=== PATIENT | male | born 1965 | race Two or more races ===

== ENCOUNTER 2020-08-05 08:28 | Inpatient (IN) | payer OTHER, MEDICAID ==
[~2020-08-05] VITALS: Ht 170.2 cm; Wt 103.0 kg
[2020-08-05 10:26] LABS: Basophils # (auto) 0.1 10 ^3/uL (0-0.2); Basophils % (auto) 0.8 % (0.0-2.0); Eosinophils # (auto) 0.3 10 ^3/uL (0-0.8); Eosinophils % (auto) 3.9 % (0.0-7.0); Hematocrit 45.3 % (41.0-53.0); Hemoglobin 15.6 g/dL (13.5-17.5); Lymphocytes # (auto) 2.3 10 ^3/uL (0.4-5.4); Lymphocytes % (auto) 27.3 % (10.0-50.0); Mean Corpuscular Hgb Conc. 34.5 g/dL (32.0-36.0); Mean Corpuscular Volume 86.8 fL (80.0-100.0); Monocytes # (auto) 0.9 10 ^3/uL (0-1.3); Monocytes % (auto) 11.1 % (0.0-12.0); Neutrophils # (auto) 4.8 10 ^3/uL (1.6-8.6); Neutrophils % (auto) 56.9 % (37.0-80.0); Nucleated Red Blood Cells % 0.2 %; Platelet Count (auto) 277 10^3/uL (140-450); Red Blood Cells 5.22 10^6/uL (4.5-5.90); Red Cell Distribution Width 12.5 % (11.8-14.3); White Blood Cell 8.4 10^3/uL (4.4-10.8)
[2020-08-05] MEDS ORDERED: SODIUM CHLORIDE 0.9% 1,000 ML IV ONE ×2 (10:30)
[2020-08-05 10:52] LABS: Urine Bacteria NONE SEEN /hpf (None Seen); Urine Blood Negative /uL (Negative); Urine Specific Gravity 1.049 (1.001-1.035); Urine WBC <1 /hpf (0 - 3)
[2020-08-05 11:59] LABS: Bilirubin, Total 1.5 mg/dL (0.2-1.0); Potassium 3.7 mmol/L (3.5-5.1)
[2020-08-05] MEDS ORDERED: PIPERACILLIN-TAZOB 3.375GM 100 ML IV ONE (12:00)
[2020-08-05 12:13] LABS: Albumin 3.9 g/dL (3.4-5.0); Calcium 9.4 mg/dL (8.5-10.1)
[2020-08-05 12:20] LABS: Total Protein 7.7 g/dL (6.4-8.2)
[2020-08-05] MEDS ORDERED: MORPHINE SULF INJ 2 MG/ML SYRINGE 1ML IV PRN (12:30)
[2020-08-05] MEDS ORDERED: ACETAMINOPHEN 500 MG TAB PO PRN (12:30)
[2020-08-05] MEDS ORDERED: ONDANSETRON HCL 4 MG/2 ML VIAL IV PRN (12:30)
[2020-08-05] MEDS ORDERED: NITROGLYCERIN 0.4 MG SL TAB SL PRN (12:30)
[2020-08-05] MEDS ORDERED: LABETALOL HCL 5 MG/ML 4ML SYRINGE IV PRN (12:30)
[2020-08-05] MEDS ORDERED: DEXTROSE (50%) 50ML SYRG IV PRN (12:30)
[2020-08-05] MEDS: MORPHINE SULF INJ 2 MG/ML SYRINGE 1ML IV PRN ×3 (13:21→22:53)
[2020-08-05 13:34] LABS: INR 1.02 (0.9-1.15)
--- NOTE | 2020-08-05 14:15 | NUR ---
Telemetry admit from JU BLANCHARD admitted to Telemetry unit after SBAR received. Patient oriented to MOLLY STARK RN primary RN,[facility] unit, 221 room,b bed, and unit policies regarding patient care and visiting hours. Patient now on continuous telemetry monitoring, tele box #41 and telemetry reading on arrival to unit is sr 90'S. Patient weighed by bedscale and encouraged to call if they need something. All questions and concerns addressed, patient verbalized understanding. Note:
[2020-08-05 14:28] LABS: Bilirubin, Total 1.4 mg/dL (0.2-1.0)
[2020-08-05 14:32] LABS: Cholesterol 132 mg/dL (< 200); Triglycerides 243 mg/dL (< 150)
[2020-08-05 14:34] LABS: HDL Cholesterol 33 mg/dL (40-59); LDL Cholesterol 78 mg/dL (< 100)
[2020-08-05] MEDS: metroNIDAZOLE 500MG/100ML 100 ML IV SCH ×2 (15:11→23:10)
[2020-08-05 16:36] VITALS: BP 133/86
[2020-08-05 16:46] VITALS: BP 133/86
[2020-08-05] MEDS ORDERED: INFLUENZA QUAD 2020-2021 0.5 ML SYRG IM ONE (17:15)
[2020-08-05] MEDS: ACCU-CHEK COMFORT CURVE STRIP VI SCH ×2 (17:16→22:00)
[2020-08-05] MEDS: InsuLIN REG 1unit/0.01ml Soln (100units/ml) SC SCH ×2 (17:57→21:37)
--- NOTE | 2020-08-05 19:00 | NUR ---
Opening Shift Note Assumed care of patient, awake and alert. No S/S of distress/SOB or pain. Insructed on POC and to callfor assist PRN, will continue to monitor for changes Q1hr and PRN.
[2020-08-05] MEDS ORDERED: METF-370 PO (19:10)
[2020-08-05] MEDS ORDERED: DOXE10CA PO (19:12)
[2020-08-05] MEDS ORDERED: ATOR10TA PO (19:12)
[2020-08-05] MEDS ORDERED: SITA50TA PO (19:13)
[2020-08-05] MEDS: ATORVASTATIN 20 MG TAB PO SCH (21:39)
[2020-08-05 22:00] VITALS: BP 134/91
--- NOTE | 2020-08-06 05:30 | NUR ---
Pt Self Report Patient reported BM at 0530. Pt verbalized " I think I may have passed something, my pain level decreased from a 7 to a 4. I felt instant relief". Per pt, bm was brown, non-formed, no blood, small ball shaped pieces.
[2020-08-06 05:50] VITALS: BP 123/72
[2020-08-06] MEDS ORDERED: INFLUENZA QUAD 2020-2021 0.5 ML SYRG IM ONE (05:51)
[2020-08-06] MEDS: metroNIDAZOLE 500MG/100ML 100 ML IV SCH ×3 (06:03→23:00)
[2020-08-06] MEDS: ACCU-CHEK COMFORT CURVE STRIP VI SCH ×4 (06:16→21:44)
[2020-08-06] MEDS: InsuLIN REG 1unit/0.01ml Soln (100units/ml) SC SCH ×4 (06:16→21:33)
[2020-08-06 06:42] LABS: Basophils # (auto) 0.1 10 ^3/uL (0-0.2); Basophils % (auto) 0.7 % (0.0-2.0); Eosinophils # (auto) 0.3 10 ^3/uL (0-0.8); Eosinophils % (auto) 3.6 % (0.0-7.0); Hematocrit 40.2 % (41.0-53.0); Lymphocytes # (auto) 1.3 10 ^3/uL (0.4-5.4); Lymphocytes % (auto) 18.9 % (10.0-50.0); Mean Corpuscular Hemoglobin 30.2 pg (28.0-32.0); Mean Corpuscular Hgb Conc. 34.8 g/dL (32.0-36.0); Mean Corpuscular Volume 86.8 fL (80.0-100.0); Monocytes # (auto) 0.7 10 ^3/uL (0-1.3); Monocytes % (auto) 9.6 % (0.0-12.0); Neutrophils # (auto) 4.8 10 ^3/uL (1.6-8.6); Neutrophils % (auto) 67.2 % (37.0-80.0); Platelet Count (auto) 244 10^3/uL (140-450); Red Blood Cells 4.63 10^6/uL (4.5-5.90); Red Cell Distribution Width 12.5 % (11.8-14.3); White Blood Cell 7.1 10^3/uL (4.4-10.8)
[2020-08-06 06:56] LABS: Potassium 3.7 mmol/L (3.5-5.1)
[2020-08-06 06:58] LABS: Albumin 3.2 g/dL (3.4-5.0); BUN/Creatinine Ratio 12.5; Calcium 8.4 mg/dL (8.5-10.1)
[2020-08-06 07:01] LABS: Bilirubin, Total 1.5 mg/dL (0.2-1.0); Total Protein 6.6 g/dL (6.4-8.2)
--- NOTE | 2020-08-06 07:12 | NUR ---
Opening Shift Note Assumed care of patient, awake and alert. No S/S of distress/SOB or pain. Insructed on POC and to callfor assist PRN. Call light in reach, will continue to monitor for changes Q1hr and PRN.
[2020-08-06] MEDS: PANTOPRAZOLE 40 MG/10 ML VIAL INJ IV SCH (08:52)
[2020-08-06] MEDS: cefTRIAXone 1GM/50ML D5W 50 ML IV SCH (08:52)
[2020-08-06 09:00] VITALS: BP 124/78
[2020-08-06 13:00] VITALS: BP 136/77
[2020-08-06 17:00] VITALS: BP 138/83
[2020-08-06] MEDS: ATORVASTATIN 20 MG TAB PO SCH (21:35)
[2020-08-06 22:00] VITALS: BP 124/73
[2020-08-07 05:00] VITALS: BP_SYST 118; BP_SYST 135; BP_DIAS 69; BP_DIAS 91
[2020-08-07] MEDS: metroNIDAZOLE 500MG/100ML 100 ML IV SCH ×3 (06:13→23:15)
[2020-08-07] MEDS: InsuLIN REG 1unit/0.01ml Soln (100units/ml) SC SCH ×4 (06:14→22:14)
[2020-08-07] MEDS: ACCU-CHEK COMFORT CURVE STRIP VI SCH ×4 (06:15→22:05)
--- NOTE | 2020-08-07 08:43 | NUR ---
ALLY TRINIDAD AT BEDSIDE DISCUSSING POC WITH PATIENT.
[2020-08-07 09:00] VITALS: BP 122/70
[2020-08-07] MEDS: PANTOPRAZOLE 40 MG/10 ML VIAL INJ IV SCH (09:18)
[2020-08-07] MEDS: cefTRIAXone 1GM/50ML D5W 50 ML IV SCH (09:18)
--- NOTE | 2020-08-07 10:35 | NUR ---
CROW CUEVAS WALKED DOWN TO LAB.
--- NOTE | 2020-08-07 11:45 | NUR ---
Nutrition Assessment Note please see attached link for complete assessment Est energy needs ABW 85 [id number] kcal (20-23 kcal/kg ABW), Est protein needs: 85-93 g (1.0-1.1g/kg ABW) Will reassess prn. Addendum: 08/07/20 at [address] Amended: Links added.
--- NOTE | 2020-08-07 12:50 | NUR ---
Patient taken down to OR, No S/S of distress noted
[2020-08-07 13:00] VITALS: BP 129/83
[2020-08-07] MEDS ORDERED: MIDAZOLAM HCL 1MG/1ML-2 ML VIAL ONE (13:13)
[2020-08-07] MEDS ORDERED: MEPERIDINE HCL (25 MG/ML) 1ML VIAL ONE (13:13)
[2020-08-07] MEDS ORDERED: fentaNYL CITRATE 100 MCG/2 ML VL ONE (13:13)
[2020-08-07] MEDS ORDERED: PROPOFOL 10 MG/ML 20 ML IV ONE ×2 (13:14→13:49)
[2020-08-07] MEDS ORDERED: SODIUM CHLORIDE LOCK 10 ML ONE (13:14)
[2020-08-07] MEDS ORDERED: ONDANSETRON HCL 4 MG/2 ML VIAL ONE (13:14)
[2020-08-07] MEDS ORDERED: ROCURONIUM 10MG/ML 10ML VIAL IV ONE (13:14)
[2020-08-07] MEDS ORDERED: MORPHINE SULFATE 4 MG/ML SYR/VIAL IV PRN (13:45)
[2020-08-07] MEDS ORDERED: ACCU-CHEK COMFORT CURVE STRIP VI ONE (13:45)
[2020-08-07] MEDS ORDERED: HYDROmorphone HCL 2 MG/ML VL IV PRN (13:45)
[2020-08-07] MEDS ORDERED: NEOSTIGMINE 1 MG/ML INJ (10mg/10ML VIAL) ONE (13:50)
[2020-08-07] MEDS ORDERED: GLYCOPYRROLATE 0.2 MG/ML 1ML VIAL ONE (13:50)
[2020-08-07] MEDS ORDERED: DOXAPRAM HCL 20 MG/ML 20ML VIAL INJ IV ONE (14:04)
[2020-08-07] MEDS ORDERED: POVIDONE IODINE 10 % TOPICAL OINT 30GM TOP ONE (14:40)
--- NOTE | 2020-08-07 16:00 | NUR ---
PATIENT BACK FROM OR AWAKE AND ALERT , RESPIRATIONS ARE EVEN AND UNLABORED, V/S WNL. NO S/S OF DISTRESS NOTED. 97.8 TEMP 61 HR, 16 RR 96% 136/86 B/P
[2020-08-07 17:00] VITALS: BP 136/86
[2020-08-07] MEDS: MORPHINE SULF INJ 2 MG/ML SYRINGE 1ML IV PRN ×2 (17:38→22:59)
--- NOTE | 2020-08-07 19:00 | NUR ---
JEREMY DRAINAGE JEERMY DRAINAGE OF 30ML BRIGHT RED DRAINAGE
--- NOTE | 2020-08-07 19:30 | NUR ---
Opening Shift Note Assumed care of patient, awake and alert. No S/S of distress/SOB or pain. Instructed on POC and to call for assist PRN, will continue to monitor for changes Q1hr and PRN. Bed is in the lowest position and locked. Call light within reach.
[2020-08-07 20:00] VITALS: BP 136/80
[2020-08-07 22:00] VITALS: BP 136/80
[2020-08-07] MEDS: ATORVASTATIN 20 MG TAB PO SCH (22:06)
[2020-08-08 05:30] VITALS: BP 138/84
[2020-08-08] MEDS: metroNIDAZOLE 500MG/100ML 100 ML IV SCH ×2 (06:49→15:00)
[2020-08-08] MEDS: InsuLIN REG 1unit/0.01ml Soln (100units/ml) SC SCH ×4 (06:50→22:13)
[2020-08-08] MEDS: ACCU-CHEK COMFORT CURVE STRIP VI SCH ×4 (06:51→22:00)
--- NOTE | 2020-08-08 07:20 | NUR ---
JEREMY DRAINAGE 90 ML OF BRIGHT RED DRAINAGE
[2020-08-08] MEDS: PANTOPRAZOLE 40 MG/10 ML VIAL INJ IV SCH (08:53)
[2020-08-08] MEDS: cefTRIAXone 1GM/50ML D5W 50 ML IV SCH (08:53)
[2020-08-08 09:00] VITALS: BP 130/75
[2020-08-08 11:07] LABS: Basophils # (auto) 0.1 10 ^3/uL (0-0.2); Basophils % (auto) 0.7 % (0.0-2.0); Eosinophils # (auto) 0.2 10 ^3/uL (0-0.8); Eosinophils % (auto) 1.5 % (0.0-7.0); Hematocrit 42.8 % (41.0-53.0); Hemoglobin 14.6 g/dL (13.5-17.5); Lymphocytes # (auto) 1.2 10 ^3/uL (0.4-5.4); Mean Corpuscular Hemoglobin 29.9 pg (28.0-32.0); Mean Corpuscular Hgb Conc. 34.1 g/dL (32.0-36.0); Mean Corpuscular Volume 87.6 fL (80.0-100.0); Monocytes # (auto) 1.2 10 ^3/uL (0-1.3); Monocytes % (auto) 10.5 % (0.0-12.0); Neutrophils # (auto) 8.7 10 ^3/uL (1.6-8.6); Neutrophils % (auto) 76.3 % (37.0-80.0); Nucleated Red Blood Cells % 0.1 %; Platelet Count (auto) 267 10^3/uL (140-450); Red Blood Cells 4.89 10^6/uL (4.5-5.90); Red Cell Distribution Width 12.5 % (11.8-14.3); White Blood Cell 11.4 10^3/uL (4.4-10.8)
[2020-08-08 11:19] LABS: Albumin 3.3 g/dL (3.4-5.0); Calcium 8.8 mg/dL (8.5-10.1); Potassium 4.1 mmol/L (3.5-5.1)
[2020-08-08 11:24] LABS: BUN/Creatinine Ratio 11.1; Bilirubin, Total 1.9 mg/dL (0.2-1.0); Total Protein 6.6 g/dL (6.4-8.2)
[2020-08-08 13:00] VITALS: BP 138/82
--- NOTE | 2020-08-08 14:00 | NUR ---
PATIENT STATED HE HAD LARGE FORMED BM AND IS PASSING GAS.
[2020-08-08] MEDS: HYDROcodone-ACET 5/325MG TAB PO PRN (16:39)
[2020-08-08 17:06] VITALS: BP 138/74
--- NOTE | 2020-08-08 17:47 | NUR ---
JEREMY DRAINAGE PATIENT JEREMY OUTPUT 35ML OF BRIGHT RED DRAINAGE.
--- NOTE | 2020-08-08 19:10 | NUR ---
Opening Shift Note Assumed care of patient, awake and alert. No S/S of distress/SOB or pain. Instructed on POC and to call for assist PRN, will continue to monitor for changes Q1hr and PRN. Bed locked and in lowest position with call light within reach.
[2020-08-08 20:00] VITALS: BP 136/76
[2020-08-08] MEDS: ATORVASTATIN 20 MG TAB PO SCH (22:00)
[2020-08-08] MEDS: metroNIDAZOLE 500 MG TAB PO SCH (22:00)
[2020-08-09] MEDS: metroNIDAZOLE 500 MG TAB PO SCH ×3 (05:46→22:24)
[2020-08-09] MEDS: ACCU-CHEK COMFORT CURVE STRIP VI SCH ×4 (06:37→22:24)
[2020-08-09] MEDS: InsuLIN REG 1unit/0.01ml Soln (100units/ml) SC SCH ×4 (06:45→22:28)
--- NOTE | 2020-08-09 06:49 | NUR ---
JEREMY drainage 50 mL out of bright red blood
[2020-08-09 08:30] VITALS: BP 123/76
[2020-08-09 09:00] VITALS: BP 123/76
[2020-08-09] MEDS: PANTOPRAZOLE 40 MG TAB PO SCH (09:07)
[2020-08-09] MEDS: cefTRIAXone 1GM/50ML D5W 50 ML IV SCH (09:08)
--- NOTE | 2020-08-09 09:08 | NUR ---
Scheduled po and IV abx given per order. Patient requested medication for 6/10 abdominal pain. Will medicate. Patient stable at this time.
[2020-08-09] MEDS: HYDROcodone-ACET 5/325MG TAB PO PRN ×3 (09:19→23:24)
--- NOTE | 2020-08-09 09:20 | NUR ---
Patient medicated for 6/10 abdominal pain. Patient stable at this time.
--- NOTE | 2020-08-09 09:35 | NUR ---
Patient ambulated to bathroom and back to bed. Patient stable.
--- NOTE | 2020-08-09 10:15 | NUR ---
Patient states pain is subsiding; 2/10. Patient stable.
--- NOTE | 2020-08-09 11:05 | NUR ---
Patient ambulating in hallway with no distress noted.
--- NOTE | 2020-08-09 11:55 | NUR ---
Assessment The patient is a 55-year-old male, who is alert and oriented. Patient cognitive abilities are intact. Patient states that he can do all ADLs and ambulate independently prior to admission to [facility]. Patient is receiving social security as income. Patient states that he lives with his (Harsh [phone]). Patient will return home post discharge and his will provide transportation post discharge. Patient stated that his and children are his support system. Patient stated that he is receptive on receiving Advance Directive forms to read over with his Discharge planning: will provide Advance Directive for patient to fill out. Patient post discharge needs are yet to be determine at this moment. Addendum: 08/09/20 at 1155 by AVTAR MEDINA Amended: Links added.
--- NOTE | 2020-08-09 12:23 | NUR ---
Checked blood sugar: 225 mg/dl - will cover per sliding scale. Patient stable. Addendum: 08/09/20 at 1233 by ZARA PIERRE RN RN Covered per sliding scale.
[2020-08-09 12:30] VITALS: BP 137/87
--- NOTE | 2020-08-09 14:01 | NUR ---
Nutrition Followup Notes Pt wt is 104.2 kg Pt was awake when rounded this morning. Pt is with a clear liquid diet, appetite is good aeb ave 88% PO intake over 2 meals per RN doc. Pt is also prescribed metronidazole, gave pt food/drug information. Dietary education for pt medical condition was given at bedside, with supportive dietary information included in pt D/C file. Pt reported feeling better s/p surgery. Est energy needs ABW 85 [id number] kcal (20-23 kcal/kg ABW), Est protein needs: 85-93 g (1.0-1.1g/kg ABW) Will reassess prn. LABS: GI: BS: PES: 1) Altered nutrition related lab values r/t current chronic medical condition aeb elev A1C hyperglycemia, mild hypoalb 2) Decrease dnutrient needs r/t adiposity aeb pt`s high BMI of 35.9 kgm2 Comments Will continue to monitor PO status, skin status, pertinent labs and weight trends. Will f/u in 2-3 days 1) advance diet as medically feaisble 2) refer to CDE on DC 3) continue current plan f care
--- NOTE | 2020-08-09 14:27 | NUR ---
Scheduled po abx given per order. Patient resting comfortably in bed with no complaint of pain at this time. Patient stable.
[2020-08-09 16:40] VITALS: BP 126/84
--- NOTE | 2020-08-09 16:52 | NUR ---
Checked blood sugar: 299 mg/dl - will cover per sliding scale. Patient sitting on side of bed; stable.
--- NOTE | 2020-08-09 17:20 | NUR ---
Patient covered per sliding scale and medicated for 6/10 abdominal pain. Patient sitting on side of bed in stable condition.
--- NOTE | 2020-08-09 18:20 | NUR ---
Patient eating dinner. No complaint of pain or discomfort at this time. Patient stable throughout shift.
--- NOTE | 2020-08-09 19:40 | NUR ---
Opening Shift Note Assumed care of patient, awake and alert. A&Ox4. Patient sitting up in bed. No S/S of distress/SOB or pain. Patient's JEREMY drain is draining, some discharge to the dressing noted. Placed abdominal pad to site. Abdominal binder in place. Safety measures maintained by keeping the bed locked in lowest position, 2 side rails up, personal items and call light within reach. Instructed on POC and to call for assist PRN, will continue to monitor for changes Q1hr and PRN.
[2020-08-09] MEDS: ATORVASTATIN 20 MG TAB PO SCH (22:24)
[2020-08-09 23:25] VITALS: BP 134/75
--- NOTE | 2020-08-09 23:25 | NUR ---
JEREMY drainage of 15mL out from JEREMY drain. Drainage is bright red. Patient also demonstrated how to empty out the drainage from the drain. Patient tolerated well.
[2020-08-10 05:00] VITALS: BP 137/80
[2020-08-10] MEDS: metroNIDAZOLE 500 MG TAB PO SCH ×2 (06:35→14:01)
[2020-08-10] MEDS: InsuLIN REG 1unit/0.01ml Soln (100units/ml) SC SCH ×3 (06:35→17:57)
[2020-08-10] MEDS: ACCU-CHEK COMFORT CURVE STRIP VI SCH ×3 (06:35→17:49)
--- NOTE | 2020-08-10 06:52 | NUR ---
JEREMY drainage of 10mL out from JEREMY drain. Drainage is bright red. Patient demonstrated emptying out the JEREMY drain himself. Patient tolerated well.
--- NOTE | 2020-08-10 07:15 | NUR ---
Patient resting comfortably in bed with no complaint of pain at this time. Patient stable.
[2020-08-10 08:30] VITALS: BP 140/86
[2020-08-10 09:00] VITALS: BP 140/86
[2020-08-10] MEDS: PANTOPRAZOLE 40 MG TAB PO SCH (09:10)
[2020-08-10] MEDS: cefTRIAXone 1GM/50ML D5W 50 ML IV SCH (09:10)
--- NOTE | 2020-08-10 09:10 | NUR ---
Scheduled po medication and IV abx per order. Patient resting comfortably in bed with no distress noted. Patient stable at this time. Addendum: 08/10/20 at 0912 by ZARA PIERRE RN RN Requested med for 01/06 abdominal pain. Will medicate.
[2020-08-10] MEDS: HYDROcodone-ACET 5/325MG TAB PO PRN (09:19)
--- NOTE | 2020-08-10 09:20 | NUR ---
Patient medicated for 4/10 abdominal pain. Patient stable.
--- NOTE | 2020-08-10 11:44 | NUR ---
Checked blood sugar: 393 mg/dl - will cover per sliding scale. Patient stable at this time. Addendum: 08/10/20 at 1150 by ZARA PIERRE RN RN Covered per sliding scale.
[2020-08-10] MEDS ORDERED: AMOX500T86 PO (12:46)
[2020-08-10 13:00] VITALS: BP 142/71
--- NOTE | 2020-08-10 13:18 | NUR ---
Patient resting comfortably in bed with no complaint of pain at this time. Patient stable.
--- NOTE | 2020-08-10 14:00 | NUR ---
Scheduled po abx given per order. Patient resting comfortably in bed with no distress noted at this time. Patient stable. Addendum: 08/10/20 at 1408 by ZARA PIERRE RN RN 20mls of reddish drainage emptied from JEREMY drain.
--- NOTE | 2020-08-10 17:00 | NUR ---
Discharge instructions Both written and verbal discharge instructions given to patient as ordered. Encourage to follow up with PMD as instructed and also follow up with Dr. Coronel on 08-22-20. All questions and concerns addressed. Patient verbalized understanding. Medication reconciliation form completed and copy given to patient. Peripheral IV removed intact with no active bleeding; pressure dressing applied to site. Telemetry unit returned to ICU. Dressing changed on abdominal, surgical sites and JEREMY drain site. Emptied 20mls from JEREMY drain. Reiterated how to drain and measure output from JEREMY drain. Patient verbalized understanding. Patient now sitting on side of bed in no distress. Patient stable.
--- NOTE | 2020-08-10 17:49 | NUR ---
Checked blood sugar: 289 mg/dl - will cover per sliding scale.
--- NOTE | 2020-08-10 19:23 | NUR ---
Patient discharged. No signs/symptoms of distress noted. Patient's items with him. All questions and concerns answered. Patient's picked him up in their own personal car to their house.
== END 2020-08-10 19:21 | disposition home or self-care (01) | DRG 419 ==
LOC: ER 08:28 → TELE-CENTR 08:29
PROVIDERS: ADMIT Nurse Practitioner Acute Care; ATTEND Internal Medicine Nephrology
PROC: 3E013GC Introduction of Other Therapeutic Substance into Subcutaneous Tissue, Percutaneous Approach (ICD-10-PCS; 2020-08-07)
PROC: 0FT44ZZ Resection of Gallbladder, Percutaneous Endoscopic Approach (ICD-10-PCS; principal; 2020-08-07 13:36)
DX: K80.00 Calculus of gallbladder with acute cholecystitis without obstruction (principal); I10 Essential (primary) hypertension; E66.01 Morbid (severe) obesity due to excess calories; E11.65 Type 2 diabetes mellitus with hyperglycemia; Z20.828 Contact with and (suspected) exposure to other viral communicable diseases; E78.5 Hyperlipidemia, unspecified; Z68.35 Body mass index [BMI] 35.0-35.9, adult; Z79.84 Long term (current) use of oral hypoglycemic drugs
CPT/HCPCS: 36415; 71045; 74176; 76705; 80053; 80061; 81001; 82150; 82247; 82962; 83036; 83605; 85025; 85610; 85730; 87040; 87426; 96361; 96365; 96366; C9113; G0378; J0696; J1815; J2250; J2405; J2543; J2704; J3490

== ENCOUNTER 2025-03-22 06:40 | Day surgery (SDC) | payer OTHER, MEDICAID ==
[2025-03-21 13:54] LABS: Urine Bacteria None Seen /hpf (None Seen)
[2025-03-21 14:17] LABS: INR 1.03 (0.9-1.15); Partial Thromboplastin Time 27.3 SEC (24.5-34.5); Prothrombin Time 10.9 sec (9.3-11.8)
[2025-03-21 14:21] LABS: Alanine Aminotransferase 35 U/L (7-40); Anion Gap 9 (5-15); Aspartate Aminotransferase 25 U/L (<34); BUN/Creatinine Ratio 16.4 (10.0-20.0); Blood Urea Nitrogen 11 mg/dL (9-23); Calcium 9.9 mg/dL (8.7-10.4); Carbon Dioxide 28 mmol/L (20-31); Chloride 101 mmol/L (98-107); Sodium 138 mmol/L (136-145); Total Protein 7.7 g/dL (5.7-8.2)
[2025-03-21 14:24] LABS: Albumin 4.9 g/dL (3.2-4.8); Alkaline Phosphatase 132 U/L (46-116); Bilirubin, Total 2.4 mg/dL (0.2-1.0); Glucose 133 mg/dL (74-106)
[2025-03-21 14:27] LABS: Basophils # (auto) 0.1 10 ^3/uL (0-0.2); Eosinophils # (auto) 0.3 10 ^3/uL (0-0.8); Eosinophils % (auto) 3.3 % (0.0-7.0); Hematocrit 44.6 % (41.0-53.0); Hemoglobin 15.5 g/dL (13.5-17.5); Lymphocytes # (auto) 2.3 10 ^3/uL (0.4-5.4); Lymphocytes % (auto) 27.8 % (10.0-50.0); Mean Corpuscular Hemoglobin 30.3 pg (28.0-32.0); Mean Corpuscular Hgb Conc. 34.8 g/dL (32.0-36.0); Monocytes # (auto) 0.8 10 ^3/uL (0-1.3); Monocytes % (auto) 10.2 % (0.0-12.0); Neutrophils # (auto) 4.7 10 ^3/uL (1.6-8.6); Neutrophils % (auto) 57.7 % (37.0-80.0); Nucleated Red Blood Cells % 0.1 %; Platelet Count (auto) 244 10^3/uL (140-450); Red Blood Cells 5.13 10^6/uL (4.5-5.90); Red Cell Distribution Width 13.4 % (11.8-14.3); White Blood Cell 8.1 10^3/uL (4.4-10.8)
[2025-03-21 14:33] LABS: Urine Blood Negative /uL (Negative); Urine Clarity Clear (Clear); Urine Color Light-Yellow (Yellow); Urine Protein, UAD Negative (Negative); Urine Specific Gravity 1.012 (1.001-1.035); Urine Squamous Epithelial Cell None Seen /hpf (<5); Urine Urobilinogen Normal (Negative); Urine WBC < 1 /HPF (0-3)
[~2025-03-22] VITALS: Ht 170.2 cm; Wt 97.5 kg
[~2025-03-22 06:40] MED LIST: ATOR40TA52 PO; DOXE10CA PO; EMPA1TAB PO; IBUP-1456 PO; METF-489 PO; SEMA2INJ3 SC
[2025-03-22] MEDS ORDERED: SUCCINYLCHOLINE CHLORIDE 20 MG/ML 10ML VIAL IV ONE (07:16)
[2025-03-22] MEDS ORDERED: ceFAZolin 2 GM/D5W50ml 50 ML IV ONE (07:26)
[2025-03-22] MEDS ORDERED: PROPOFOL 10 MG/ML 20 ML IV ONE (07:41)
[2025-03-22] MEDS ORDERED: MIDAZOLAM HCL 2MG/2ML 2ml VIAL (1mg/ml) ONE (07:41)
[2025-03-22] MEDS ORDERED: SODIUM CHLORIDE LOCK 10 ML ONE (07:41)
[2025-03-22] MEDS ORDERED: KETAMINE 50mg/ML 1ml syringe ONE (07:41)
[2025-03-22] MEDS ORDERED: LIDOCAINE 1% INJ PF 5ML AMP ONE (07:41)
[2025-03-22] MEDS ORDERED: ONDANSETRON HCL 4 MG/2 ML VIAL ONE (07:41)
[2025-03-22] MEDS ORDERED: fentaNYL CITRATE 100 MCG/2 ML VL ONE (07:41)
[2025-03-22] MEDS ORDERED: BACITRACIN TOP OINT 1 UD PKG TOP ONE (07:43)
[2025-03-22] MEDS ORDERED: ACCU-CHEK COMFORT CURVE STRIP VI ONE (07:45)
[2025-03-22] MEDS ORDERED: MORPHINE SULFATE 4 MG/ML SYR/VIAL IV PRN (07:45)
[2025-03-22] MEDS ORDERED: HYDROmorphone HCL 2 MG/ML VL/or syr IV PRN ×2 (07:45)
[2025-03-22] MEDS ORDERED: METOCLOPRAMIDE HCL 5MG/ml INJ 2ml VIAL IV ONE (07:45)
[2025-03-22] MEDS ORDERED: KETOROLAC TROMETH 30 MG/ML 1ML VIAL IV ONE (07:45)
[2025-03-22] MEDS ORDERED: MORPHINE SULFATE INJ 2 MG/ml SYRG IV PRN (08:27)
[2025-03-22 08:31] VITALS: PULSE 74; RESP 12; TEMP 96.9; O2SAT 96
--- NOTE | 2025-03-22 08:33 | DVHNC2 ---
Procedure - OPERATIVE REPORT Pre-op. Diagnosis: Phimosis Post-op. Diagnosis: Same as pre-op diagnosis Operation: Circumcision Anesthesia: General + Lidocaine 1% with Epi for penile block Indications: Patient has difficulty with fully retracting his foreskin and recurrent irritation/balanitis. The indications, risks, complications, alternatives and benefits for circumcision is discussed with patient and family. All questions were encouraged and answered. Specific risks/complications including but not limited to infection, wound dehiscence, penile deformity/angulation and altered sensation on skin were discussed. He is aware of alternative management of hygiene and conservative management. He is competent and understands the discussion. The consent was obtained. Details of Procedure: Patient was brought to the operating room and placed in supine position. After induction of anesthesia, his genitalia was prepped and draped in standard surgical fashion. Dorsal penile block was performed with 1% Lidocaine with Epi in standard manner. Two circumferential incisions were made proximally and distally from the coronal sulcus and the excess foreskin was excised. Hemostasis was assured and the edges were re-approximated by using 3-0 Chromic Suture in a simple interrupted fashion. Sterile dressing was then applied and patient was then awakened and moved to the recovery room in satisfactory fashion. Specimens: Foreskin Complications: None HENRIQUE BENITO MD Mar 22, 2025 08:33
--- NOTE | 2025-03-22 08:34 | DVHDS2 ---
New Physician D'charge PN Admitting Diagnosis Admitting Diagnosis Phimosis Discharge Diagnosis Same Operations or Procedures Circumcision Reason(s) For Hospitalization Surgery Treatment Plan Discharge Condition of Discharge Good Disposition Home Discharge Instructions Diet: Regular Activity: Light activity Activity comment: Remove dressing on postop day 1. Medications: Given Follow Up Care Follow Up/Referral: Two weeks for wound check Discharge Statement: "Patient was advised to return to the ER or call 911 if any headaches, dizziness, shortness of breath, chest pain, abdominal pain, bleeding, fevers, or worsening of medical condition. Patient was counseled about treatment plan, medications, possible side effects, patientverbalized understanding. All questions were answered to the best of my ability. This discharge took greater then 30 minutes in planning, reviewing documentation, counseling the patient, and discussing with other team members." HENRIQUE BENITO MD Mar 22, 2025 08:34
[2025-03-22] MEDS: LIDOCAINE W/ EPINEPHRINE 1% 20ML VIAL ONE (08:39)
[2025-03-22 09:10] VITALS: BP 123/68; PULSE 70; RESP 13; O2SAT 98
== END 2025-03-22 09:30 | disposition home or self-care (01) ==
LOC: SUR 06:40
PROVIDERS: ATTEND Urology
DX: N47.1 Phimosis (principal); E11.9 Type 2 diabetes mellitus without complications; F41.8 Other specified anxiety disorders; E66.9 Obesity, unspecified; Z68.33 Body mass index [BMI] 33.0-33.9, adult; Z79.899 Other long term (current) drug therapy; Z98.890 Other specified postprocedural states
CPT/HCPCS: 36415; 54161; 80053; 81001; 82962; 85025; 85610; 85730; 87086; 87088; 87186; J0330; J0690; J2250; J2405; J2704; J3010

== ENCOUNTER 2025-08-21 15:13 | Emergency (ER) | payer OTHER, MEDICAID ==
[~2025-08-21] VITALS: Ht 170.2 cm; Wt 94.3 kg
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
[2025-08-21] MEDS ORDERED: NAP500T PO (19:23)
[2025-08-21] MEDS ORDERED: CAPS0.0210 EX (19:24)
[2025-08-21] MEDS: IBUPROFEN 800 MG TAB PO ONE (19:25)
[2025-08-21] MEDS: ACETAMINOPHEN 325 MG TAB PO ONE (19:26)
[2025-08-21 19:27] VITALS: BP 127/84; PULSE 81; RESP 16; TEMP 97.8; O2SAT 94
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
== END 2025-08-21 19:54 | disposition home or self-care (01) ==
LOC: ER 15:13
DX: S16.1XXA Strain of muscle, fascia and tendon at neck level, initial encounter (principal); S39.012A Strain of muscle, fascia and tendon of lower back, initial encounter; Z90.49 Acquired absence of other specified parts of digestive tract; Z79.899 Other long term (current) drug therapy; E11.9 Type 2 diabetes mellitus without complications; V89.2XXA Person injured in unspecified motor-vehicle accident, traffic, initial encounter; Y93.89 Activity, other specified; Y92.410 Unspecified street and highway as the place of occurrence of the external cause; Y99.8 Other external cause status
CPT/HCPCS: 72040; 72100